=== PATIENT | male | born 1960 | race Caucasian/White ===

== ENCOUNTER 2016-11-28 13:00 | Outpatient (CLI) | payer MEDICARE | END 2016-11-28 13:01 | disposition home or self-care (01) | DX: R73.09 Other abnormal glucose (principal); I10 Essential (primary) hypertension; G40.409 Other generalized epilepsy and epileptic syndromes, not intractable, without status epilepticus; Z79.899 Other long term (current) drug therapy; E78.2 Mixed hyperlipidemia ==

== ENCOUNTER 2017-05-24 10:00 | Outpatient (CLI) | payer MEDICARE ==
[2017-05-24 19:00] LABS: HEMOGLOBIN A1C 0.82 g/dL
== END 2017-05-24 10:01 | disposition home or self-care (01) ==
LOC: LAB.R 10:00
PROVIDERS: ATTEND Internal Medicine
DX: E03.9 Hypothyroidism, unspecified (principal); R73.09 Other abnormal glucose
CPT/HCPCS: 83036; 84443

== ENCOUNTER 2017-12-13 08:00 | Outpatient (CLI) | payer MEDICARE ==
[2017-12-13 12:54] LABS: BASOPHILS % (AUTO) 0.2 %; EOSINOPHILS # (AUTO) 0.1 10^3/uL (0.0-0.7); EOSINOPHILS % (AUTO) 0.9 %; HGB - HEMOGLOBIN 15.1 g/dL (14.0-18.0); LYMPHOCYTES # (AUTO) 2.2 10^3/uL (1.5-3.5); LYMPHOCYTES % (AUTO) 22.3 %; MEAN CORPUSCULAR HEMOGLOBIN 34.1 pg (27.0-31.0); MEAN CORPUSCULAR HGB CONC 33.6 g/dL (32.0-36.0); MEAN CORPUSCULAR VOLUME 101.6 fL (80.0-94.0); MEAN PLATELET VOLUME 7.4 fL (7.4-11.4); MONOCYTES % (AUTO) 9.5 %; NEUTROPHILS # (AUTO) 6.7 10^3/uL (1.5-6.6); NEUTROPHILS % (AUTO) 67.1 %; PLT - PLATELET COUNT 297 10^3/uL (130-450); RED BLOOD COUNT 4.44 10^6/uL (4.70-6.10); RED CELL DISTRIBUTION WIDTH 13.3 % (12.0-15.0)
[2017-12-13 13:14] LABS: HB2 TOTAL 16.5 g/dL; HEMOGLOBIN A1C 0.74 g/dL; HEMOGLOBIN A1C % 6.3 % (4.6-6.2)
[2017-12-13 13:21] LABS: ALBUMIN 4.7 g/dL (3.2-5.5); ALBUMIN/GLOBULIN RATIO 1.7 (1.0-2.2); BILIRUBIN,TOTAL 0.3 mg/dL (0.2-1.0); CALCIUM 8.9 mg/dL (8.5-10.3); CREATININE 0.7 mg/dL (0.6-1.2); PHENYTOIN (DILANTIN) 15.1 ug/mL; TOTAL PROTEIN 7.4 g/dL (6.7-8.2)
[2017-12-14 13:21] LABS: HEPATITIS C ANTIBODY NON-REACTIVE (NON-REACTIVE)
== END 2017-12-13 08:01 | disposition home or self-care (01) ==
LOC: LAB.R 08:00
PROVIDERS: ATTEND Internal Medicine
DX: I10 Essential (primary) hypertension (principal); R56.9 Unspecified convulsions; R73.9 Hyperglycemia, unspecified; E03.9 Hypothyroidism, unspecified; Z72.89 Other problems related to lifestyle; Z12.5 Encounter for screening for malignant neoplasm of prostate; Z79.899 Other long term (current) drug therapy
CPT/HCPCS: 80053; 80185; 83036; 84443; 85025; 86803; G0103; 84153

== ENCOUNTER 2018-01-08 10:04 | Outpatient (CLI) | payer MEDICARE ==
--- NOTE | 2018-01-10 11:49 | DEXA Report ---
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 TECHNIQUE: Dual energy x-ray absorptiometry (DXA) was performed on a [facility] system. Regions measured are the AP spine, femoral neck, and, if needed, forearm. COMPARISON: None. In accordance with the International Society for Clinical Densitometry (ISCD) guidelines, data from previous exams may be reanalyzed using current recommendations and techniques. This is done to allow a more accurate basis for comparison with the current study. FINDINGS: The data for the lumbar spine is as follows: REGION BMD (g/cm/cm) T-SCORE Z-SCORE L1 1.159 0.0 -0.1 L2 1.200 -0.3 -0.4 L3 1.302 0.5 0.4 L4 1.269 0.2 0.1 TOTAL 1.236 0.1 0.0 NOTE: All evaluable vertebrae are used for classification. The data for the hip is as follows: REGION BMD (g/cm/cm) T-SCORE Z-SCORE Neck 0.788 -2.2 -1.6 TOTAL 0.836 -1.8 -1.7 NOTE: The femoral neck or total proximal femur, whichever is lowest, is used for classification. IMPRESSION: THE WHO CLASSIFICATION BASED ON THE INTERNATIONAL REFERENCE STANDARD IS OSTEOPENIA. THE FRACTURE RISK IS INCREASED. RECOMMENDATION: Patients with diagnosis of osteoporosis or osteopenia should have regular bone mineral density assessment. For those eligible for Medicare, routine testing is allowed once every 2 years. Testing frequency can be increased for patients who have rapidly progressing disease or for those who are receiving medical therapy to restore bone mass. COMMENT: World Health Organization (WHO) definitions for osteoporosis and osteopenia: NORMAL BMD: T-score at 1.0 or higher, fracture risk is low. OSTEOPENIA BMD: T-score between 1.0 and -2.5, fracture risk is increased. OSTEOPOROSIS BMD: T-score at 2.5 or lower, fracture risk high. National Osteoporosis Foundation recommends: 1. Obtain adequate dietary calcium (at least 1200 mg per day) and vitamin D (400 -800 international units per day). 2. Participate, as appropriate, in regular weightbearing and muscle- strengthening exercise. 3. Avoid tobacco use and reduce alcohol and caffeine intake. 4. For more detailed information see the website at www.NOF.org. MTDD
== END 2018-01-08 10:05 | disposition home or self-care (01) ==
LOC: DI 10:04
PROVIDERS: ATTEND Internal Medicine
DX: M85.88 Other specified disorders of bone density and structure, other site (principal); Z79.899 Other long term (current) drug therapy
CPT/HCPCS: 77080

== ENCOUNTER 2018-01-24 08:35 | Outpatient (CLI) | payer MEDICARE ==
[2018-01-24 13:25] LABS: CHOL/HDL RATIO 2.5 (<5.0); CHOLESTEROL 170 mg/dL; HDL CHOLESTEROL 69 mg/dL; LDL CHOLESTEROL,CALCULATED 83 mg/dL; LDL/HDL RATIO 1.2 (<3.6); VLDL CHOLESTEROL 18 mg/dL
== END 2018-01-24 08:36 | disposition home or self-care (01) ==
LOC: LAB.R 08:35
PROVIDERS: ATTEND Internal Medicine
DX: E78.5 Hyperlipidemia, unspecified (principal)
CPT/HCPCS: 80061; 83721

== ENCOUNTER 2018-06-18 08:00 | Outpatient (CLI) | payer MEDICARE ==
[2018-06-18 09:38] LABS: PHENYTOIN (DILANTIN) 14.1 ug/mL
[2018-06-18 09:47] LABS: HB2 TOTAL 15.5 g/dL; HEMOGLOBIN A1C 0.65 g/dL
== END 2018-06-18 08:01 | disposition home or self-care (01) ==
LOC: LAB.R 08:00
PROVIDERS: ATTEND Internal Medicine
DX: R73.9 Hyperglycemia, unspecified (principal); E03.9 Hypothyroidism, unspecified; R56.9 Unspecified convulsions
CPT/HCPCS: 80185; 82947; 83036; 84443

== ENCOUNTER 2018-09-19 09:25 | Outpatient (CLI) | payer MEDICARE | END 2018-09-19 23:59 | disposition home or self-care (01) | LOC: LAB.R 09:25 | PROVIDERS: ATTEND Internal Medicine | DX: E03.9 Hypothyroidism, unspecified (principal) | CPT/HCPCS: 84443 ==

== ENCOUNTER 2018-11-02 10:59 | Emergency (ER) | payer MEDICARE ==
[2018-11-02 12:49] LABS: BILIRUBIN,URINE NEGATIVE (NEGATIVE); GLUCOSE, URINE (UA) NEGATIVE (NEGATIVE); KETONES,URINE (UA) NEGATIVE (NEGATIVE); LEUKOCYTE ESTERASE, URINE NEGATIVE (NEGATIVE); NITRITE,URINE NEGATIVE (NEGATIVE); OCCULT BLOOD,URINE NEGATIVE (NEGATIVE); PROTEIN,URINE NEGATIVE (NEGATIVE); UROBILINOGEN,URINE 0.2 (NORMAL) E.U./dL (NORMAL)
[2018-11-02 12:51] LABS: CLARITY,URINE CLEAR (CLEAR)
--- NOTE | 2018-11-02 13:33 | ED Physician Documentation ---
PD HPI GI BLEED - Stated complaint Stated Complaint: MALE - Chief complaint Chief Complaint: Abd Pain - History obtained from History obtained from: Patient, Family - History of Present Illness Timing - onset: Enter time (0900), Today Timing - duration: Hours Timing - details: Abrupt onset, Now resolved Associated symptoms: BRBPR Contributing factors: No: Sick contact, Bad food Improved by: Laying still Similar symptoms before: Has not had sx before Recently seen: Not recently seen - Additional information Additional information: 57-year-old male with a history of developmental delay from a injury has developed acute rectal bleeding today. He was not able to adequately explain this to the triage nurse and just said he had blood when he went to the bathroom. His urinalysis was negative for blood. His sister indicates that he had bright red blood in the commode and then when questioned the patient does describe going to the bathroom and having bright red blood. He also when questioned specifically indicates he has there is a mass that he can feel at his rectum. Review of Systems Constitutional: denies: Fever Eyes: denies: Decreased vision Ears: denies: Ear pain Nose: denies: Congestion Throat: denies: Sore throat Respiratory: denies: Cough GI: reports: Bloody / black stool. denies: Abdominal Pain, Nausea, Vomiting : denies: Dysuria PD PAST MEDICAL HISTORY - Past Medical History Cardiovascular: Hypertension, High cholesterol Respiratory: None Endocrine/Autoimmune: None GI: None : None Psych: Other Musculoskeletal: None - Present Medications Home Medications: Ambulatory Orders Medication Instructions Recorded Confirmed Lisinopril [Zestril] 10 mg PO DAILY 12/26/13 12/26/13 Metoprolol Succinate 50 mg PO BID 12/26/13 12/26/13 Phenytoin [Dilantin] 50 mg PO BID 12/26/13 12/26/13 Potassium Bicarbonate/Cit AC 25 meq PO 12/26/13 12/26/13 [Potassium 25 Meq Tablet Eff] Pravastatin Sodium [Pravachol] 40 mg PO DAILY 12/26/13 12/26/13 hydroCHLOROthiazide [Hydrodiuril] 25 mg PO DAILY 12/26/13 12/26/13 - Allergies Allergies/Adverse Reactions: Allergies Allergy/AdvReac Type Severity Reaction Status Date / Time No Known Drug Allergies Allergy Verified 11/02/18 11:04 PD ED PE NORMAL - Vitals Vital signs reviewed: Yes (hypertensive ) - General General: No acute distress, Well developed/nourished, Other (gregarious and somewhat vacant) - HEENT HEENT: Atraumatic, PERRL - Neck Neck: Supple, no meningeal sign, No bony TTP - Cardiac Cardiac: RRR, No murmur - Respiratory Respiratory: No respiratory distress, Clear bilaterally - Abdomen Abdomen: Soft, Non tender - Rectal Rectal: Other (There is a hemmorhoid at 9 o'clock that is thrombosed and there is evidence of acute bleeding. There is an uleration to the surface. 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, No motor deficit, No sensory deficit, Normal speech Eye Opening: Spontaneous Motor: Obeys Commands Verbal: Oriented GCS Score: 15 - Psych Psych: Normal mood, Normal affect Results - Vitals Vitals: Vital Signs - 24 hr 11/02/18 11:01 Temperature 36.9 C Heart Rate 79 Respiratory 18 Rate Blood Pressure 163/85 H O2 Saturation 97 Oxygen O2 Source Room air - Labs Labs: Laboratory Tests 11/02/18 11/02/18 11/02/18 12:33 13:44 13:44 WBC 8.8 RBC 4.10 L Hgb 14.4 Hct 41.0 L MCV 100.1 H MCH 35.0 H MCHC 35.0 RDW 13.0 Plt Count 340 MPV 6.9 L Neut # (Auto) 6.1 Lymph # (Auto) 1.6 [place] # (Auto) 0.9 Eos # (Auto) 0.1 Baso # (Auto) 0.0 Absolute Nucleated RBC 0.00 Nucleated RBC % 0.0 Sodium 133 L Potassium 4.0 Chloride 95 L Carbon Dioxide 28 Anion Gap 10.0 BUN 14 Creatinine 0.6 Estimated GFR (MDRD) 138 Glucose 132 H Calcium 9.0 Total Bilirubin 0.8 AST 22 ALT 25 Alkaline Phosphatase 132 H Total Protein 7.2 Albumin 4.1 Globulin 3.1 Albumin/Globulin Ratio 1.3 Lipase 27 Urine Color YELLOW Urine Clarity CLEAR Urine pH 7.0 Ur Specific [place] 1.010 Urine Protein NEGATIVE Urine Glucose (UA) NEGATIVE Urine Ketones NEGATIVE Urine Occult Blood NEGATIVE Urine Nitrite NEGATIVE Urine Bilirubin NEGATIVE Urine Urobilinogen 0.2 (NORMAL) Ur Leukocyte Esterase NEGATIVE Ur Microscopic Review NOT INDICATED Urine Culture Comments NOT INDICATED PD MEDICAL DECISION MAKING - ED course Complexity details: reviewed results, re-evaluated patient, considered differential, d/w patient, d/w family ED course: 57 y/o male with BRBPR has an active hemorrhoid as the source. He is instructed to use hydrocortisone bid and manual decompression. His sister is his legal guardian and she is familiar with hemorrhoids and she will instruct him as needed. Departure - Departure Disposition: 01 Home, Self Care Clinical Impression: Bleeding hemorrhoid Condition: Stable Instructions: ED Hemorrhoids, ED Hematochezia Stable Follow-Up: Rodney Garcia MD [Primary Care Provider] -
[2018-11-02 14:01] LABS: BASOPHILS % (AUTO) 0.4 %; EOSINOPHILS # (AUTO) 0.1 10^3/uL (0.0-0.7); EOSINOPHILS % (AUTO) 1.2 %; HGB - HEMOGLOBIN 14.4 g/dL (14.0-18.0); LYMPHOCYTES # (AUTO) 1.6 10^3/uL (1.5-3.5); LYMPHOCYTES % (AUTO) 18.5 %; MEAN CORPUSCULAR VOLUME 100.1 fL (80.0-94.0); MEAN PLATELET VOLUME 6.9 fL (7.4-11.4); MONOCYTES # (AUTO) 0.9 10^3/uL (0.0-1.0); MONOCYTES % (AUTO) 10.6 %; NEUTROPHILS # (AUTO) 6.1 10^3/uL (1.5-6.6); NEUTROPHILS % (AUTO) 69.3 %; PLT - PLATELET COUNT 340 10^3/uL (130-450); WHITE BLOOD COUNT 8.8 x10^3/uL (4.8-10.8)
[2018-11-02 14:14] LABS: ALBUMIN 4.1 g/dL (3.2-5.5); ALBUMIN/GLOBULIN RATIO 1.3 (1.0-2.2); BILIRUBIN,TOTAL 0.8 mg/dL (0.2-1.0); CREATININE 0.6 mg/dL (0.6-1.2); TOTAL PROTEIN 7.2 g/dL (6.7-8.2)
[2018-11-02 14:38] VITALS: BP 158/68
== END 2018-11-02 14:39 | disposition home or self-care (01) ==
LOC: ED 10:59
DX: K64.5 Perianal venous thrombosis (principal); K64.8 Other hemorrhoids; I10 Essential (primary) hypertension
CPT/HCPCS: 36415; 80053; 81001; 81003; 83690; 85025; 87086; 99282; 99283

== ENCOUNTER 2019-01-01 08:23 | Outpatient (CLI) | payer MEDICARE ==
[2019-01-01 08:43] LABS: BASOPHILS # (AUTO) 0.1 10^3/uL (0.0-0.1); BASOPHILS % (AUTO) 1.1 %; EOSINOPHILS # (AUTO) 0.1 10^3/uL (0.0-0.7); EOSINOPHILS % (AUTO) 1.5 %; HGB - HEMOGLOBIN 13.8 g/dL (14.0-18.0); LYMPHOCYTES # (AUTO) 2.8 10^3/uL (1.5-3.5); LYMPHOCYTES % (AUTO) 31.4 %; MEAN CORPUSCULAR HGB CONC 33.1 g/dL (32.0-36.0); MEAN CORPUSCULAR VOLUME 99.6 fL (80.0-94.0); MEAN PLATELET VOLUME 6.4 fL (7.4-11.4); MONOCYTES % (AUTO) 11.1 %; NEUTROPHILS # (AUTO) 4.8 10^3/uL (1.5-6.6); NEUTROPHILS % (AUTO) 54.9 %; PLT - PLATELET COUNT 473 10^3/uL (130-450); RED BLOOD COUNT 4.18 10^6/uL (4.70-6.10); RED CELL DISTRIBUTION WIDTH 14.4 % (12.0-15.0); WHITE BLOOD COUNT 8.8 x10^3/uL (4.8-10.8)
[2019-01-01 08:59] LABS: ALBUMIN 4.1 g/dL (3.2-5.5); ALBUMIN/GLOBULIN RATIO 1.2 (1.0-2.2); ALKALINE PHOSPHATASE 168 IU/L (42-121); ALT ALANINE AMINOTRANSFERASE 41 IU/L (10-60); AST ASPARTATE AMINOTRANSFERASE 28 IU/L (10-42); BILIRUBIN,TOTAL 0.6 mg/dL (0.2-1.0); BUN - BLOOD UREA NITROGEN 21 mg/dL (6-20); CALCIUM 9.1 mg/dL (8.5-10.3); CARBON DIOXIDE - CO2 24 mmol/L (21-32); CHLORIDE 101 mmol/L (101-111); CHOL/HDL RATIO 2.4 (<5.0); CHOLESTEROL 187 mg/dL; CREATININE 0.8 mg/dL (0.6-1.2); GFR - MDRD 99 (>89); GLUCOSE 140 mg/dL (70-100); HDL CHOLESTEROL 77 mg/dL; LDL CHOLESTEROL,CALCULATED 96 mg/dL; LDL/HDL RATIO 1.2 (<3.6); PHENYTOIN (DILANTIN) 7.2 ug/mL; SODIUM 135 mmol/L (135-145); TOTAL PROTEIN 7.4 g/dL (6.7-8.2); VLDL CHOLESTEROL 14 mg/dL
[2019-01-01 09:10] LABS: HEMOGLOBIN A1C 0.7 g/dL; HEMOGLOBIN A1C % 6.4 % (4.6-6.2)
== END 2019-01-01 08:24 | disposition home or self-care (01) ==
LOC: LAB 08:23
PROVIDERS: ATTEND Internal Medicine
DX: E78.5 Hyperlipidemia, unspecified (principal); R56.9 Unspecified convulsions; R73.02 Impaired glucose tolerance (oral); Z12.5 Encounter for screening for malignant neoplasm of prostate; E03.9 Hypothyroidism, unspecified
CPT/HCPCS: 36415; 80061; 80185; 83036; G0103; 80053; 83721; 84153; 84443; 85025

== ENCOUNTER 2019-02-21 08:30 | Outpatient (CLI) | payer MEDICARE ==
[2019-02-21 09:36] LABS: HB2 TOTAL 14.7 g/dL; HEMOGLOBIN A1C 0.6 g/dL; HEMOGLOBIN A1C % 5.9 % (4.6-6.2)
== END 2019-02-21 08:31 | disposition home or self-care (01) ==
LOC: LAB 08:30
PROVIDERS: ATTEND Internal Medicine
DX: R73.02 Impaired glucose tolerance (oral) (principal); E03.9 Hypothyroidism, unspecified
CPT/HCPCS: 36415; 83036; 84443

== ENCOUNTER 2019-04-10 11:21 | Day surgery (SDC) | payer MEDICARE ==
[~2019-04-10 11:21] MED LIST: LACTATED RINGERS 1,000 ML IV ONE
--- NOTE | 2019-04-10 11:57 | SURGERY HX AND PHYSICAL(T) ---
Surgical History & Physical - PMH/PSH/Social Hx Does the pt have a hx of MRSA?: No Cardiovascular: Hypertension, High cholesterol Respiratory: None Endocrine/Autoimmune: None Gastrointestinal: None Urinary: None Musculoskeletal: None Psychiatric: Other General: Colonoscopy Smoking Status: Never smoker Does the pt drink ETOH?: No Frequency: Occasional Does the pt have substance abuse?: No - Home Meds and Allergies Home Medications: Lisinopril [Zestril] 10 mg PO DAILY 12/26/13 Metoprolol Succinate 50 mg PO BID 12/26/13 Phenytoin [Dilantin] 50 mg PO BID 12/26/13 Potassium Bicarbonate/Cit AC [Potassium 25 Meq Tablet Eff] 25 meq PO DAILY 12/26/13 Pravastatin Sodium [Pravachol] 40 mg PO DAILY 12/26/13 hydroCHLOROthiazide [Hydrodiuril] 25 mg PO DAILY 12/26/13 Calcium Carbonate [Tums (Calcium Carbonate 500mg)] 750 mg PO BID 04/10/19 Cholecalciferol (Vitamin D3) [Vitamin D3] 1,000 unit PO DAILY 04/10/19 Allergies/Adverse Reactions: Allergies Allergy/AdvReac Type Severity Reaction Status Date / Time No Known Drug Allergies Allergy Verified 04/10/19 11:38 - Vital Signs Weight (kg): 87 kg Height: 1.83 m - Patient Review Patient Review: Problems were reviewed with the patient during this visit. Medications were reviewed with the patient during this visit. Allergies were reviewed this patient during this visit. Pertinent Tests Reviewed: All pertitent test for this patient were reviewed. - Assessment & Plan Assessment and Plan: Initially seen on February 25, 2019 for the very same reasons. Because more than 30 days were allowed to elapse between the time of that history is a goal and today's procedure a repeat history and physical is required. At that time and again today he describes his bowel movements as regular normal. He denies nausea, vomiting, constipation, diarrhea, melena, hematochezia, hematemesis, abdominal pain, unexplained weight loss, or change in the color, character, or caliber of his stool. Again, the patient's previous colonoscopy was performed in December [address] Andres and finding one tubular adenoma and one hyperplastic polyp. The patient is reevaluated today in room 3 at [facility]'s senior care manager unit. Current Allergies: No Known Allergies Current Meds: LEVOTHYROXINE SODIUM 200 MCG ORAL TABLET (LEVOTHYROXINE SODIUM) Take one tablet by mouth once daily for thyroid replacement; Route: ORAL TUMS CHEWY BITES 750 MG ORAL TABLET CHEWABLE (CALCIUM CARBONATE ANTACID) Take one tablet twice per day VITAMIN D (CHOLECALCIFEROL) 1000 UNIT ORAL TABLET (CHOLECALCIFEROL) Take one tablet twice per day KLOR-CON/EF 25 MEQ ORAL TABLET EFFERVESCENT (POTASSIUM BICARBONATE) Take one tablet by mouth three times weekly. HYDROCHLOROTHIAZIDE 12.5 MG ORAL TABLET (HYDROCHLOROTHIAZIDE) QDay METOPROLOL TARTRATE 50 MG ORAL TABLET (METOPROLOL TARTRATE) 1 tab by mouth twice daily LISINOPRIL 20 MG ORAL TABLET (LISINOPRIL) QDAY; Route: ORAL PHENYTOIN 50 MG ORAL TABLET CHEWABLE (PHENYTOIN) Take three tablets by mouth in the AM and four tablets in the PM.; Route: ORAL ATORVASTATIN CALCIUM 40 MG ORAL TABLET (ATORVASTATIN CALCIUM) 1 po QHS Past Medical History: Developmental delay Hypertension High Cholesterol Diabetes Thyroid Problems Past Surgical History: Colonoscopy- 2013 Family History Summary: Patient has never smoked. Patient has never used smokeless tobacco. Passive Smoke: N Alcohol Use: N Drug Use: N HIV/High Risk: N Regular Exercise: Y Hx Domestic Abuse: N Gnosticist Affecting Care: N Sexually Active: N Review of Systems CONSTITUTIONAL: No weight loss, fever, chills, weakness, or fatigue. HEENT: Eyes: No visual loss, blurred vision, double vision or yellow sclerae. Ears, Nose, Throat: No hearing loss, sneezing, congestion, runny nose, or sore throat. SKIN: No rash or itching. RESPIRATORY: No shortness of breath, cough or sputum. GASTROINTESTINAL: No anorexia, nausea, vomiting or diarrhea. No abdominal pain or blood. GENITOURINARY: No dysuria. NEUROLOGICAL: No headache, dizziness, syncope, paralysis, ataxia, numbness or tingling in the extremities. No change in bowel or bladder control. MUSCULOSKELETAL: No muscle, back pain, joint pain or stiffness. HEMATOLOGIC: No anemia, bleeding or bruising. LYMPHATICS: No enlarged nodes. No history of splenectomy. PSYCHIATRIC: No history of depression or anxiety. ENDOCRINOLOGIC: No reports of sweating, cold or heat intolerance. No polyuria or polydipsia. ALLERGIES: No history of asthma, hives, eczema or rhinitis. Physical Exam General: 58 year old female, appears stated age, well developed, well nourished, evaluated in room 3 in [facility]'s amatory care unit HEENT: Normocephalic, atraumatic, extraocular movement intact, mucous membranes pink and moist, sclera anicteric and not injected, graying hair Neck: Supple without pain on palpation, mass or bruit Cardiac: Regular rate and rhythm without rub, gallop, or murmur Chest: Clear to auscultation bilaterally Abdomen: Soft, nontender, normoactive bowel sounds, no hepatomegaly, no splenomegaly Genitourinary: Deferred Rectal: Deferred until colonoscopy Extremities: No gross neurovascular problem, no clubbing, cyanosis or edema Gait: No gross motor deficit Psychiatric: Alert and oriented to person place and time, asks and answers questions appropriately, mood and affect appropriate Impression & Recommendations: Colonoscopy with possible biopsies and/or polypectomies. Indications, procedure, alternatives (such as barium enema, Cologuard and even no procedure at all) and risks including but not limited to perforation requiring operative repair, bleeding with its risks, and were fully explained to him. In the office, I andrea diagrams explaining the colonic anatomy and the proposed procedure and handed it to him. In the office, conscious sedation was discussed at length with him as were its risks including but not limited to loss of airway, aspiration, respiratory depression, and not enough relief of pain and anxiety and he indicated that he wished to have conscious sedation for his procedure. In the office, I explained that MAC anesthesia is associated with a higher incidence of colon perforation. Review of his history does not reveal any significant systemic disease that would contraindicate use of conscious sedation or MAC anesthesia. All questions were fully answered. Verbal and written consent was obtained. The patient in preparation for his colonoscopy has been n.p.o. and his colon has been mechanically prepped. 20 minutes of [id number] time spent with the patient the majority of which was spent in discussion and in the generation of this document Dragon disclaimer: This document was created in part using voice recognition technology. Because of the inherent limitations of the system ([employer]'s [employer] user manual states that the licensee understands that speech recognition is a statistical process and that recognition errors are inherent in the process), occasional same sounding word substitutions and grammatical errors do occur and persist despite proofreading. Please read this document for context.
[2019-04-10] MEDS ORDERED: MIDAZOLAM 2 MG/2 ML VIAL IVP ONE (12:21)
[2019-04-10] MEDS ORDERED: fentaNYL 250 MCG/5 ML VIAL IVP ONE (12:21)
[2019-04-10 14:28] VITALS: BP 110/75
== END 2019-04-10 11:22 | disposition home or self-care (01) ==
LOC: SDS 11:21
PROVIDERS: ATTEND Surgery
PROC: 0DJD8ZZ Inspection of Lower Intestinal Tract, Via Natural or Artificial Opening Endoscopic (ICD-10-PCS; principal; 2019-04-10 12:45)
DX: Z12.11 Encounter for screening for malignant neoplasm of colon (principal); Z86.010 Personal history of colon polyps; K64.8 Other hemorrhoids; I10 Essential (primary) hypertension; Z79.899 Other long term (current) drug therapy; Z86.39 Personal history of other endocrine, nutritional and metabolic disease
CPT/HCPCS: G0105; J3010; J7120

== ENCOUNTER 2019-10-21 10:00 | Outpatient (CLI) | payer MEDICARE ==
[2019-10-21 10:53] LABS: ALBUMIN 4.4 g/dL (3.2-5.5); ALBUMIN/GLOBULIN RATIO 1.6 (1.0-2.2); ALKALINE PHOSPHATASE 107 IU/L (42-121); ALT ALANINE AMINOTRANSFERASE 23 IU/L (10-60); AST ASPARTATE AMINOTRANSFERASE 23 IU/L (10-42); BILIRUBIN,TOTAL 0.8 mg/dL (0.2-1.0); BUN - BLOOD UREA NITROGEN 19 mg/dL (6-20); CALCIUM 8.9 mg/dL (8.5-10.3); CARBON DIOXIDE - CO2 26 mmol/L (21-32); CHLORIDE 99 mmol/L (101-111); CHOL/HDL RATIO 2.3 (<5.0); CHOLESTEROL 166 mg/dL; CREATININE 0.8 mg/dL (0.6-1.2); GFR - MDRD 99 (>89); GLUCOSE 128 mg/dL (70-100); HDL CHOLESTEROL 73 mg/dL; LDL CHOLESTEROL,CALCULATED 83 mg/dL; LDL/HDL RATIO 1.1 (<3.6); SODIUM 136 mmol/L (135-145); TOTAL PROTEIN 7.1 g/dL (6.7-8.2); VLDL CHOLESTEROL 10 mg/dL
[2019-10-21 10:55] LABS: HB2 TOTAL 14.9 g/dL; HEMOGLOBIN A1C 0.69 g/dL; HEMOGLOBIN A1C % 6.4 % (4.6-6.2)
== END 2019-10-21 10:01 | disposition home or self-care (01) ==
LOC: LAB 10:00
PROVIDERS: ATTEND Internal Medicine
DX: E78.5 Hyperlipidemia, unspecified (principal); R73.02 Impaired glucose tolerance (oral); E03.9 Hypothyroidism, unspecified
CPT/HCPCS: 36415; 80053; 80061; 83036; 83721; 84443

== ENCOUNTER 2019-12-23 08:28 | Outpatient (CLI) | payer MEDICARE ==
[2019-12-23 12:22] LABS: HB2 TOTAL 15.2 g/dL; HEMOGLOBIN A1C 0.58 g/dL; HEMOGLOBIN A1C % 5.6 % (4.6-6.2)
== END 2019-12-23 23:59 | disposition home or self-care (01) ==
LOC: LAB.WCP 08:28
PROVIDERS: ATTEND Internal Medicine
DX: E11.9 Type 2 diabetes mellitus without complications (principal)
CPT/HCPCS: 36415; 83036

== ENCOUNTER 2020-04-29 13:36 | Outpatient (CLI) | payer MEDICARE ==
[2020-04-29 14:05] LABS: CALCIUM 9.4 mg/dL (8.5-10.3); CREATININE 0.7 mg/dL (0.6-1.2); PHENYTOIN (DILANTIN) 15.9 ug/mL
[2020-04-29 14:25] LABS: THYROID STIMULATING HORMONE 1.39 uIU/mL (0.34-5.60)
[2020-04-29 14:26] LABS: FREE T3 3.35 pg/mL (2.5-3.9)
[2020-04-29 14:27] LABS: FREE T4 (FREE THYROXINE) 1.17 ng/dL (0.58-1.64)
[2020-04-29 14:28] LABS: HEMOGLOBIN A1C 0.57 g/dL; HEMOGLOBIN A1C % 5.6 % (4.6-6.2)
== END 2020-04-29 13:37 | disposition home or self-care (01) ==
LOC: LAB 13:36
PROVIDERS: ATTEND Family Medicine
DX: E11.9 Type 2 diabetes mellitus without complications (principal); I10 Essential (primary) hypertension; R56.9 Unspecified convulsions; E03.9 Hypothyroidism, unspecified
CPT/HCPCS: 36415; 80048; 80185; 83036; 84439; 84443; 84481

== ENCOUNTER 2021-06-09 09:56 | Outpatient (CLI) | payer MEDICARE ==
[2021-06-09 10:17] LABS: BASOPHILS % (AUTO) 0.3 %; EOSINOPHILS # (AUTO) 0.1 10^3/uL (0.0-0.7); EOSINOPHILS % (AUTO) 1.5 %; HCT - HEMATOCRIT 42.5 % (42.0-52.0); HGB - HEMOGLOBIN 14.8 g/dL (14.0-18.0); LYMPHOCYTES # (AUTO) 2.8 10^3/uL (1.5-3.5); LYMPHOCYTES % (AUTO) 29.3 %; MEAN CORPUSCULAR HEMOGLOBIN 35.7 pg (27.0-31.0); MEAN CORPUSCULAR HGB CONC 34.8 g/dL (32.0-36.0); MEAN CORPUSCULAR VOLUME 102.7 fL (80.0-94.0); MEAN PLATELET VOLUME 8.8 fL (7.4-11.4); MONOCYTES # (AUTO) 1.1 10^3/uL (0.0-1.0); NEUTROPHILS # (AUTO) 5.5 10^3/uL (1.5-6.6); NEUTROPHILS % (AUTO) 57.6 %; PLT - PLATELET COUNT 278 10^3/uL (130-450); RED BLOOD COUNT 4.14 10^6/uL (4.70-6.10); RED CELL DISTRIBUTION WIDTH 12.7 % (12.0-15.0); WHITE BLOOD COUNT 9.5 x10^3/uL (4.8-10.8)
[2021-06-09 10:37] LABS: ALBUMIN 4.6 g/dL (3.2-5.5); ALBUMIN/GLOBULIN RATIO 1.4 (1.0-2.2); ALKALINE PHOSPHATASE 128 IU/L (42-121); ALT ALANINE AMINOTRANSFERASE 21 IU/L (10-60); AST ASPARTATE AMINOTRANSFERASE 21 IU/L (10-42); BILIRUBIN,TOTAL 0.4 mg/dL (0.2-1.0); BUN - BLOOD UREA NITROGEN 19 mg/dL (6-20); CALCIUM 9.4 mg/dL (8.5-10.3); CARBON DIOXIDE - CO2 27 mmol/L (21-32); CHLORIDE 98 mmol/L (101-111); CHOL/HDL RATIO 2.2 (<5.0); CHOLESTEROL 181 mg/dL; CREATININE 0.7 mg/dL (0.6-1.2); GFR - MDRD 115 (>89); GLUCOSE 118 mg/dL (70-100); HDL CHOLESTEROL 82 mg/dL; LDL CHOLESTEROL,CALCULATED 91 mg/dL; LDL/HDL RATIO 1.1 (<3.6); PHENYTOIN (DILANTIN) 19.8 ug/mL; POTASSIUM 4.3 mmol/L (3.5-5.0); SODIUM 135 mmol/L (135-145); TOTAL PROTEIN 7.8 g/dL (6.7-8.2); TRIGLYCERIDES 42 mg/dL; VLDL CHOLESTEROL 8 mg/dL
[2021-06-09 10:42] LABS: MICROALBUM/CREATININE RATIO,UR 3.6 ug/mg (<30.0); MICROALBUMIN,URINE 0.4 mg/dL (0-300.0)
[2021-06-09 10:48] LABS: THYROID STIMULATING HORMONE 2.76 uIU/mL (0.34-5.60)
[2021-06-09 13:27] LABS: ESTIMATED AVERAGE GLUCOSE 117 mg/dL (70-100); HEMOGLOBIN A1c% 5.7 % (4.27-6.07)
== END 2021-06-09 09:57 | disposition home or self-care (01) ==
LOC: LAB 09:56
PROVIDERS: ATTEND Family Medicine
DX: E11.9 Type 2 diabetes mellitus without complications (principal); I10 Essential (primary) hypertension; E78.5 Hyperlipidemia, unspecified; G40.909 Epilepsy, unspecified, not intractable, without status epilepticus; E03.9 Hypothyroidism, unspecified
CPT/HCPCS: 36415; 80053; 80061; 80185; 82043; 82570; 83036; 83721; 84443; 85025

== ENCOUNTER 2022-11-05 21:01 | Emergency (ER) | payer MEDICARE ==
--- NOTE | 2022-11-05 22:19 | CT Report ---
PROCEDURE: HEAD WO INDICATIONS: fall/head injury TECHNIQUE: Noncontrast 4.5 mm thick angled axial sections acquired from the foramen magnum to the vertex. For r adiation dose reduction, the following was used: automated exposure control, adjustment of mA and/or kV according to patient size. COMPARISON: None. FINDINGS: Image quality: Excellent. CSF spaces: Basal cisterns are patent. No extra-axial fluid collections. Ventricles are normal in size and shape. Brain: No midline shift. No intracranial masses or hemorrhage. Muir-white matter interface is norm al. Skull and face: Calvarium and visualized facial bones are intact, without suspicious lesions. Soft tissue swelling anterolateral right orbital area. Sinuses: Visualized sinuses and mastoids are clear. IMPRESSION: Focal mild soft tissue swelling related to trauma this evening but no fracture, orbital trauma, or brain injury is seen. Reviewed by: Fabrice Berrios MD on 11/05/2022 10:18 PM PST Approved by: Fabrice Berrios MD on 11/05/2022 10:18 PM PST Station ID: [id number]
--- NOTE | 2022-11-05 22:21 | CT Report ---
PROCEDURE: MAXILLOFACIAL WO INDICATIONS: fall/facial injury R sup orb rim TECHNIQUE: Noncontrast 1.5 mm thick axial images acquired from the mandible through the frontal sinuses, with co benjamin and sagittal reformatting. For radiation dose reduction, the following was used: automated ex posure control, adjustment of mA and/or kV according to patient size. COMPARISON: Head CT same day. FINDINGS: Image quality: Excellent. Bones and teeth: Orbital yeung are intact. Sinus yeung show no fracture or deformity. Nasal bones and septum are intact. Visualized portions of the mandible demonstrate no fractures or subluxation. Zygomatic arches are intact. Pterygoid plates are intact. Visualized portions of the skull base an d auditory canals are intact. Sinuses: Paranasal sinuses are aerated, without fluid levels, mucosal thickening, or mucoceles. Mas toid air cells are aerated. Soft tissues: No left-sided edema, masses, or fluid collections. On the right in the upper outer pe riorbital soft tissues there is soft tissue edema, consistent with bruising, but no underlying fractu re or injury to the globe. No enlarged lymph nodes. No soft tissue lacerations or debris. Vascular: Visualized vascular structures appear normal in the absence of contrast. Bony vascular fo ramina and canals are intact. IMPRESSION: Right upper outer periorbital soft tissue edema without osseous trauma or injury to the globe. Reviewed by: Fabrice Berrios MD on 11/05/2022 10:20 PM PST Approved by: Fabrice Berrios MD on 11/05/2022 10:20 PM PST Station ID: [id number]
--- NOTE | 2022-11-05 22:27 | ED Physician Documentation ---
PD HPI HEAD INJURY - Stated complaint Stated Complaint: GLF,HEAD INJ - Chief complaint Chief Complaint: Trauma Hd/Nk - History obtained from History obtained from: Patient, Caregiver - Additional information Additional information: The patient comes to the emergency department with caregiver for chief complaint of ground-level fall earlier this evening and pain and swelling over his right eye. He states that several hours ago, he was walking in his kitchen and preparing a hamburger for himself when he slipped and fell, striking his face on the vinyl floor. He states that he did not lose consciousness and was not injured in any other way other than bruising his Left hand. However, he states that the pain and swelling in the face was bothering him, so he asked his caregiver to bring him here. He does note that he is "wobbly" but states that he is always a little off balance and being on the Dilantin. However, he feels like it might be a little bit worse today. His caregiver states that he seems perhaps slightly less steady than he normally would. No other complaints at this time. The patient was able to get himself up off the floor and ambulate. PD PAST MEDICAL HISTORY - Past Medical History Cardiovascular: Hypertension, High cholesterol Respiratory: None Neuro: None Endocrine/Autoimmune: Type 2 diabetes GI: None : None Psych: Other Musculoskeletal: None - Past Surgical History Past Surgical History: No General: Colonoscopy - Present Medications Home Medications: Ambulatory Orders Medication Instructions Recorded Confirmed Phenytoin [Dilantin] 50 mg PO BID 12/26/13 12/01/19 Potassium Bicarbonate/Cit AC 25 meq PO DAILY 12/26/13 12/01/19 [Potassium 25 Meq Tablet Eff] hydroCHLOROthiazide [Hydrodiuril] 12.5 mg PO DAILY 12/26/13 12/01/19 lisinopriL [Zestril] 20 mg PO DAILY 12/26/13 12/01/19 Calcium Carbonate [Tums (Calcium 750 mg PO BID 04/10/19 12/01/19 Carbonate 500mg)] Cholecalciferol (Vitamin D3) 1,000 unit PO BID 04/10/19 12/01/19 [Vitamin D3] Atorvastatin Calcium 40 mg PO DAILY 12/01/19 12/01/19 Levothyroxine Sodium 200 mcg PO DAILY 12/01/19 12/01/19 Metoprolol Tartrate 50 mg PO BID 12/01/19 12/01/19 metFORMIN [Glucophage] 500 mg PO DAILY 12/01/19 12/01/19 - Allergies Allergies/Adverse Reactions: Allergies Allergy/AdvReac Type Severity Reaction Status Date / Time No Known Drug Allergies Allergy Verified 11/05/22 21:10 - Social History Does the pt smoke?: No Smoking Status: Never smoker Does the pt drink ETOH?: No Does the pt have substance abuse?: No - Immunizations Immunizations are current?: Yes - POLST Patient has POLST: No PD ED PE NORMAL - Vitals Vital signs reviewed: Yes - General General: No acute distress, Well developed/nourished, Other (The patient is alert and appropriate) - HEENT HEENT: PERRL, EOMI, Moist mucous membranes, Other (3 cm diameter area of cont usion and edema over superolateral orbital rim on the right. No bony deformity. No extraocular muscle entrapment.) - Neck Neck: Supple, no meningeal sign, No bony TTP - Cardiac Cardiac: RRR, No murmur, Strong equal pulses - Respiratory Respiratory: No respiratory distress, Clear bilaterally - Abdomen Abdomen: Soft, Non tender, Non distended - Back Back: No spinal TTP - Derm Derm: Normal color, Warm and dry, No rash - Extremities Extremities: No deformity, No tenderness to palpate, Normal ROM s pain, No edema - Neuro Neuro: Other (Ambulatory on a narrow-based gait. Moving all 4 extremities no gross deficits.) - Psych Psych: Normal mood, Normal affect PD ED PE EXPANDED - Free text exam Free text exam: No chest wall tenderness or deformity. Results - Vitals Vitals: Vital Signs - 24 hr 11/05/22 11/05/22 11/05/22 21:10 22:00 23:00 Temperature 36 C L 36.8 C Heart Rate 81 79 79 Respiratory 18 18 17 Rate Blood Pressure 145/77 H 120/75 120/76 O2 Saturation 100 97 97 Oxygen O2 Source Room air - Labs Labs: Laboratory Tests 11/05/22 21:31 Phenytoin 42.4 H* - Rads (name of study) CT head Radiology: Final report received, See rad report (Negative) Maxillofacial CT Radiology: Final report received, See rad report (Soft tissue swelling right superior orbital rim, otherwise unremarkable) PD Medical Decision Making - ED course ED course: The patient was evaluated with CTs of the face and head, and a Dilantin level. The CTs were reviewed by myself and ultimately, finally interpreted by the radiologist, and both were unremarkable, other than some soft tissue swelling. T he Dilantin level was elevated at 40, which was about twice the upper limit of normal. The patient, though Dilantin toxic, had relatively mild symptoms and was mentating at baseline per his caregiver. I suspected that he had likely been chronically somewhat Dilantin toxic, given his longstanding history of being "Off balance" and had perhaps recently had more of an uptick in the level. I discussed with the patient caregiver that he should skip his Dilantin doses tomorrow and then may resume the next day. However, the caregiver should call the patient's primary doctor's office to set up A blood draw to recheck the Dilantin level later this week. He also has an appointment coming up on November 23, but should try to be seen sooner if possible, especially if the repeat Dilantin level is elevated. Patient and caregiver are agreeable to this plan. We have discussed the usual indications for return. Departure - Departure Disposition: Home, Self Care Clinical Impression: Ground-level fall Facial contusion Qualifiers: Encounter type: initial encounter Qualified Code(s): S00.83XA - Contusion of other part of head, initial encounter Dilantin toxicity Qualifiers: Encounter type: initial encounter Injury intent: accidental or unintentional Qualified Code(s): T42.0X1A - Poisoning by hydantoin derivatives, accidental (unintentional), initial encounter Condition: Stable Instructions: ED Head Injury Closed Comments: The CTs of your head and face look good today. You have not injured yourself significantly. Your blood Dilantin level is about twice what it should be. In general, this will produce mild to moderate symptoms of toxicity. In your case, the symptoms are fairly mild, being confined to feeling a bit off balance. Generally, this will correct itself as your level comes down. It is advisable that you skip your Dilantin for tomorrow, and then resume taking it as usual. You should call to make an appointment with your primary care physician first thing Sunday to follow-up for a blood draw and see how you are levels are doing. If your levels are still running high, then your dose most likely needs to be decreased a little so it does not build up in your system so much. Discharge Date/Time: 11/05/22 23:01
[2022-11-05 23:01] VITALS: BP 120/76
== END 2022-11-05 23:01 | disposition home or self-care (01) ==
LOC: ED 21:01
DX: S00.83XA Contusion of other part of head, initial encounter (principal); W01.0XXA Fall on same level from slipping, tripping and stumbling without subsequent striking against object, initial encounter; Y93.01 Activity, walking, marching and hiking; Y92.000 Kitchen of unspecified non-institutional (private) residence as the place of occurrence of the external cause; T42.0X5A Adverse effect of hydantoin derivatives, initial encounter; R26.81 Unsteadiness on feet
CPT/HCPCS: 36415; 80185; 99284

== ENCOUNTER 2022-11-21 10:42 | Outpatient (CLI) | payer MEDICARE ==
[2022-11-21 10:56] LABS: BASOPHILS % (AUTO) 0.1 %; EOSINOPHILS # (AUTO) 0.1 10^3/uL (0.0-0.7); EOSINOPHILS % (AUTO) 0.8 %; HCT - HEMATOCRIT 43.3 % (42.0-52.0); HGB - HEMOGLOBIN 14.5 g/dL (14.0-18.0); LYMPHOCYTES # (AUTO) 2.2 10^3/uL (1.5-3.5); LYMPHOCYTES % (AUTO) 24.4 %; MEAN CORPUSCULAR HGB CONC 33.5 g/dL (32.0-36.0); MEAN CORPUSCULAR VOLUME 101.4 fL (80.0-94.0); MEAN PLATELET VOLUME 8.6 fL (7.4-11.4); MONOCYTES # (AUTO) 0.8 10^3/uL (0.0-1.0); MONOCYTES % (AUTO) 8.9 %; NEUTROPHILS # (AUTO) 5.9 10^3/uL (1.5-6.6); NEUTROPHILS % (AUTO) 65.6 %; PLT - PLATELET COUNT 289 10^3/uL (130-450); RED BLOOD COUNT 4.27 10^6/uL (4.70-6.10); RED CELL DISTRIBUTION WIDTH 12.9 % (12.0-15.0); WHITE BLOOD COUNT 8.9 x10^3/uL (4.8-10.8)
[2022-11-21 11:15] LABS: ALBUMIN 4.5 g/dL (3.2-5.5); ALBUMIN/GLOBULIN RATIO 1.5 (1.0-2.2); ALKALINE PHOSPHATASE 98 IU/L (42-121); ALT ALANINE AMINOTRANSFERASE 19 IU/L (10-60); AST ASPARTATE AMINOTRANSFERASE 17 IU/L (10-42); BILIRUBIN,TOTAL 0.6 mg/dL (0.2-1.0); BUN - BLOOD UREA NITROGEN 21 mg/dL (6-20); CALCIUM 9.6 mg/dL (8.5-10.3); CARBON DIOXIDE - CO2 29 mmol/L (21-32); CHLORIDE 99 mmol/L (101-111); CHOL/HDL RATIO 2.1 (<5.0); CHOLESTEROL 179 mg/dL; CREATININE 0.8 mg/dL (0.6-1.2); GFR - MDRD 98 (>89); GLUCOSE 153 mg/dL (70-100); HDL CHOLESTEROL 85 mg/dL; LDL CHOLESTEROL,CALCULATED 83 mg/dL; POTASSIUM 4.4 mmol/L (3.5-5.0); SODIUM 138 mmol/L (135-145); TOTAL PROTEIN 7.5 g/dL (6.7-8.2); TRIGLYCERIDES 54 mg/dL; VLDL CHOLESTEROL 11 mg/dL
[2022-11-21 11:26] LABS: THYROID STIMULATING HORMONE 2.84 uIU/mL (0.34-5.60)
[2022-11-21 11:28] LABS: ESTIMATED AVERAGE GLUCOSE 123 mg/dL (70-100); HEMOGLOBIN A1c% 5.9 % (4.27-6.07)
== END 2022-11-21 10:43 | disposition home or self-care (01) ==
LOC: LAB 10:42
PROVIDERS: ATTEND Family Medicine
DX: I10 Essential (primary) hypertension (principal); E11.9 Type 2 diabetes mellitus without complications; E78.5 Hyperlipidemia, unspecified; E03.9 Hypothyroidism, unspecified; T42.0X Poisoning by, adverse effect of and underdosing of hydantoin derivatives
CPT/HCPCS: 36415; 80053; 80061; 83036; 83721; 84443; 85025

== ENCOUNTER 2022-11-25 13:46 | Outpatient (CLI) | payer MEDICARE | END 2022-11-25 13:47 | disposition home or self-care (01) | LOC: LAB 13:46 | PROVIDERS: ATTEND Family Medicine | DX: G40.909 Epilepsy, unspecified, not intractable, without status epilepticus (principal) | CPT/HCPCS: 36415; 80185 ==

== ENCOUNTER 2023-07-26 13:05 | Outpatient (CLI) | payer MEDICARE ==
[2023-07-26 17:49] LABS: BASOPHILS % (AUTO) 0.4 %; EOSINOPHILS # (AUTO) 0.1 10^3/uL (0.0-0.7); EOSINOPHILS % (AUTO) 1.7 %; HCT - HEMATOCRIT 42.4 % (42.0-52.0); HGB - HEMOGLOBIN 14.5 g/dL (14.0-18.0); LYMPHOCYTES # (AUTO) 2.2 10^3/uL (1.5-3.5); LYMPHOCYTES % (AUTO) 26.5 %; MEAN CORPUSCULAR HEMOGLOBIN 35.5 pg (27.0-31.0); MEAN CORPUSCULAR HGB CONC 34.2 g/dL (32.0-36.0); MEAN CORPUSCULAR VOLUME 103.9 fL (80.0-94.0); MEAN PLATELET VOLUME 9.2 fL (7.4-11.4); MONOCYTES % (AUTO) 11.7 %; NEUTROPHILS # (AUTO) 4.9 10^3/uL (1.5-6.6); NEUTROPHILS % (AUTO) 59.5 %; PLT - PLATELET COUNT 332 10^3/uL (130-450); RED BLOOD COUNT 4.08 10^6/uL (4.70-6.10); RED CELL DISTRIBUTION WIDTH 12.4 % (12.0-15.0); WHITE BLOOD COUNT 8.2 x10^3/uL (4.8-10.8)
[2023-07-26 18:28] LABS: ALBUMIN 4.6 g/dL (3.2-5.5); ALBUMIN/GLOBULIN RATIO 1.9 (1.0-2.2); BILIRUBIN,TOTAL 0.3 mg/dL (0.2-1.0); CALCIUM 9.3 mg/dL (8.5-10.3); POTASSIUM 4.2 mmol/L (3.5-4.5)
[2023-07-26 18:30] LABS: THYROID STIMULATING HORMONE 1.64 uIU/mL (0.34-5.60)
[2023-07-26 20:54] LABS: ESTIMATED AVERAGE GLUCOSE 126 mg/dL (70-100)
== END 2023-07-26 13:06 | disposition home or self-care (01) ==
LOC: LAB.N 13:05
PROVIDERS: ATTEND Family Medicine
DX: I10 Essential (primary) hypertension (principal); E11.9 Type 2 diabetes mellitus without complications; M85.80 Other specified disorders of bone density and structure, unspecified site; E03.9 Hypothyroidism, unspecified; E55.9 Vitamin D deficiency, unspecified; G40.909 Epilepsy, unspecified, not intractable, without status epilepticus
CPT/HCPCS: 36415; 80053; 82306; 83036; 84443; 85025

== ENCOUNTER 2024-01-15 08:08 | Outpatient (CLI) | payer MEDICARE ==
[2024-01-15 08:26] LABS: BASOPHILS % (AUTO) 0.4 %; EOSINOPHILS # (AUTO) 0.1 10^3/uL (0.0-0.7); EOSINOPHILS % (AUTO) 1.4 %; HCT - HEMATOCRIT 42.8 % (42.0-52.0); HGB - HEMOGLOBIN 14.6 g/dL (14.0-18.0); LYMPHOCYTES # (AUTO) 2.5 10^3/uL (1.5-3.5); MEAN CORPUSCULAR HEMOGLOBIN 34.7 pg (27.0-31.0); MEAN CORPUSCULAR HGB CONC 34.1 g/dL (32.0-36.0); MEAN CORPUSCULAR VOLUME 101.7 fL (80.0-94.0); MEAN PLATELET VOLUME 8.6 fL (7.4-11.4); MONOCYTES % (AUTO) 10.6 %; NEUTROPHILS # (AUTO) 5.3 10^3/uL (1.5-6.6); NEUTROPHILS % (AUTO) 59.3 %; PLT - PLATELET COUNT 296 10^3/uL (130-450); RED BLOOD COUNT 4.21 10^6/uL (4.70-6.10); RED CELL DISTRIBUTION WIDTH 13.1 % (12.0-15.0)
[2024-01-15 08:44] LABS: ALBUMIN 4.6 g/dL (3.2-5.5); ALBUMIN/GLOBULIN RATIO 1.6 (1.0-2.2); ALKALINE PHOSPHATASE 133 IU/L (42-121); ALT ALANINE AMINOTRANSFERASE 17 IU/L (10-60); AST ASPARTATE AMINOTRANSFERASE 13 IU/L (10-42); BILIRUBIN,TOTAL 0.5 mg/dL (0.2-1.0); BUN - BLOOD UREA NITROGEN 29 mg/dL (6-20); CALCIUM 10.1 mg/dL (8.5-10.3); CARBON DIOXIDE - CO2 30 mmol/L (21-32); CHLORIDE 101 mmol/L (101-111); CHOL/HDL RATIO 2.4 (<5.0); CHOLESTEROL 197 mg/dL; GFR - MDRD 75 (>89); GLUCOSE 147 mg/dL (74-104); HDL CHOLESTEROL 81 mg/dL; LDL CHOLESTEROL,CALCULATED 101 mg/dL; LDL/HDL RATIO 1.2 (<3.6); PHENYTOIN (DILANTIN) 15.2 ug/mL; POTASSIUM 4.7 mmol/L (3.5-4.5); SODIUM 139 mmol/L (135-145); TOTAL PROTEIN 7.5 g/dL (6.4-8.9); TRIGLYCERIDES 74 mg/dL (48-352); VLDL CHOLESTEROL 15 mg/dL
[2024-01-15 10:24] LABS: ESTIMATED AVERAGE GLUCOSE 131 mg/dL (70-100); HEMOGLOBIN A1c% 6.2 % (4.27-6.07)
== END 2024-01-15 08:09 | disposition home or self-care (01) ==
LOC: LAB 08:08
PROVIDERS: ATTEND Family Medicine
DX: I10 Essential (primary) hypertension (principal); E11.9 Type 2 diabetes mellitus without complications; E78.5 Hyperlipidemia, unspecified; E03.9 Hypothyroidism, unspecified; Z12.5 Encounter for screening for malignant neoplasm of prostate; G40.909 Epilepsy, unspecified, not intractable, without status epilepticus
CPT/HCPCS: 36415; 80053; 80061; 80185; 83036; 84443; 85025; G0103; 83721; 84153